=== PATIENT | female | born 1955 | race Caucasian/White ===

== ENCOUNTER → 2022-07-22 | Outpatient (CLI) | payer BC | END | disposition home or self-care (01) | LOC: RAH 14:01 | PROVIDERS: ATTEND Internal Medicine | DX: M47.26 Other spondylosis with radiculopathy, lumbar region (principal); M43.17 Spondylolisthesis, lumbosacral region; M48.061 Spinal stenosis, lumbar region without neurogenic claudication; M51.16 Intervertebral disc disorders with radiculopathy, lumbar region; M96.1 Postlaminectomy syndrome, not elsewhere classified | CPT/HCPCS: 72148 ==

== ENCOUNTER → 2022-09-10 | Outpatient (CLI) | payer BC, MEDICARE | END | disposition home or self-care (01) | LOC: RAH 11:59 | PROVIDERS: ATTEND Neurological Surgery | DX: M47.816 Spondylosis without myelopathy or radiculopathy, lumbar region (principal); M48.061 Spinal stenosis, lumbar region without neurogenic claudication; M96.0 Pseudarthrosis after fusion or arthrodesis; M43.16 Spondylolisthesis, lumbar region | CPT/HCPCS: 72114; 72131 ==

== ENCOUNTER 2022-10-08 05:34 | Day surgery (SDC) | payer BC, MEDICARE ==
[2022-10-06 11:28] LABS: BASOPHILS % (AUTO) 0.4 % (0.0-5.0); EOSINOPHILS % (AUTO) 0.7 % (0.0-8.0); HEMATOCRIT 51.1 % (36-48); LYMPHOCYTES % (AUTO) 27.4 % (21.0-51.0); MEAN CORPUSCULAR HEMOGLOBIN 29.8 pg (27.0-33.0); MEAN CORPUSCULAR HGB CONC 33.1 g/dL (32.0-36.0); MEAN CORPUSCULAR VOLUME 90.1 fL (79-99); NEUTROPHILS % (AUTO) 64.4 % (40.0-77.0); PLATELET COUNT (AUTO) 291 K/uL (130-400); RED BLOOD CELL COUNT(AUTO) 5.67 MIL/uL (4.00-5.50); RED CELL DISTRIBUTION WIDTH 14.3 % (11.0-15.5); WHITE BLOOD COUNT (AUTO) 7.7 K/uL (4.8-10.8)
[2022-10-06 11:42] LABS: CREATININE 0.8 mg/dL (0.5-1.5); POTASSIUM 3.9 mmol/L (3.5-5.1)
[2022-10-06 14:47] VITALS: BP 135/90
[~2022-10-08] VITALS: Ht 156.2 cm; Wt 90.1 kg
[2022-10-08] VITALS (13 sets, daily range): BP systolic 118–130; BP diastolic 59–71
[~2022-10-08 05:34] MED LIST: BUPR300T53 PO; CALC-1125 PO; DULA4.5P SQ; EMPA25TA PO; INSU100V37 SQ; L.AC1CAP6 PO; LEVO50TA6 PO; MULT-1367 PO; OLME5TAB29 PO; OMEG-148 PO; OXCA300T46 PO; PIOG15TA66 PO; ROSU5TAB PO; VENL150C4 PO; VITAMIN D3 PO
[2022-10-08] MEDS ORDERED: 0.9%NACL 1000ML 1,000 ML IV ONE (07:45)
[2022-10-08] MEDS ORDERED: LIDOCAINE HCL 1% MDV 50ML VIAL ONE (07:55)
[2022-10-08] MEDS ORDERED: SODIUM BICARB [NEONATAL] 4.2% 10ML SYG ONE (07:55)
[2022-10-08] MEDS ORDERED: BUPIVACAINE/PF 0.5% 30ML VIAL ONE (07:55)
[2022-10-08] MEDS ORDERED: IOHEXOL 180 MG/ML 20 ML VIAL ONE (08:54)
[2022-10-08] MEDS ORDERED: FENTANYL CITRATE PF 50 MCG/1 ML 2ML VIAL ONE (09:57)
[2022-10-08] MEDS ORDERED: MIDAZOLAM HCL 1 MG/ML 2ML VIAL ONE (09:57)
[2022-10-08] MEDS ORDERED: DEXTROSE 50%-WATER 50 ML DISP.SYRIN IV ONE (11:24)
== END 2022-10-08 13:05 | disposition home or self-care (01) ==
LOC: DAH 05:34
PROVIDERS: ATTEND Neurological Surgery
DX: M53.3 Sacrococcygeal disorders, not elsewhere classified (principal); Z20.822 Contact with and (suspected) exposure to COVID-19; E11.9 Type 2 diabetes mellitus without complications; E66.9 Obesity, unspecified; Z79.82 Long term (current) use of aspirin; Z79.890 Hormone replacement therapy; Z79.899 Other long term (current) drug therapy
CPT/HCPCS: 80048; 85025; 87426; 36415; 93005; 27096; 82948 ×3; 72202; A4663; J7030 ×2; J3010; J7070; J3490 ×3; J2250; J1030 ×2; Q9965; A4215; A4223; A4222; A4221